=== PATIENT | female | born 1945 | race Caucasian/White ===

== ENCOUNTER 2016-10-08 06:52 | Emergency (ER) | payer OTHER ==
--- NOTE | 2016-10-08 08:51 | DIAGNOSTIC IMAGING REPORT ---
PROCEDURE: XR CHEST 1 VIEW INDICATION: SHORTNESS OF BREATH TECHNIQUE: Portable AP view (0820 hours). COMPARISON: Compared to chest x-ray on 02/24/2008. FINDINGS: Lungs are clear. Heart and mediastinum are normal. Thorax is normal. IMPRESSION: 1. Negative chest.
--- NOTE | 2016-10-08 09:10 | ED ORDER SUMMARY ---
..... Patient: LANA ESPINOZA OrderSheet Located Within [facility] VisitID: [id number] [address] [place] [address] 71y, F Registration Date/Time: 10/08/2016 ORDER SHEET Weight: 94.3 kg (stated) Allergies: Naproxen GENERAL ORDERS: Chest 1V Urgent (08:04 10/08/2016 Milad SIERRA) (Ack 8:34 LNations ER Tech1) (9:18 LNations ER Tech1) EKG - ER Stat (08:05 10/08/2016 Milad SIERRA) (Ack 8:34 LNations ER Tech1) (8:51 LNations ER Tech1) MEDICATION ORDERS: DuoNeb Neb Tx 1 unit dose (NOW) (08:21 10/08/2016 Milad SIERRA) (8:39 RMcCclarissa) Prednisone PO 60 mg (NOW) (08:21 10/08/2016 Milad SIERRA) (8:27 EBonham) IV FLUIDS: ORDER SHEET NOTES: [Electronically signed by Dona Milian (09:24 10/08/2016)] [Electronically signed by Shazia Rossi MD (20:49 10/16/2016)] [Electronically locked/signed by Dona Milian (09:24 10/08/2016)]
--- NOTE | 2016-10-08 09:10 | ED ORDER SUMMARY ---
..... Patient: LANA ESPINOZA OrderSheet [facility] VisitID: [id number] [address] [place] [address] 71y, F Registration Date/Time: 10/08/2016 ORDER SHEET Weight: 94.3 kg (stated) Allergies: Naproxen GENERAL ORDERS: Chest 1V Urgent (08:04 10/08/2016 Milad SIERRA) (Ack 8:34 LNations ER Tech1) (9:18 LNations ER Tech1) EKG - ER Stat (08:05 10/08/2016 Milad SIERRA) (Ack 8:34 LNations ER Tech1) (8:51 LNations ER Tech1) MEDICATION ORDERS: DuoNeb Neb Tx 1 unit dose (NOW) (08:21 10/08/2016 Milad SIERRA) (8:39 RMcCclarissa) Prednisone PO 60 mg (NOW) (08:21 10/08/2016 Milad SIERRA) (8:27 EBonham) IV FLUIDS: ORDER SHEET NOTES: [Electronically signed by Dona Milian (09:24 10/08/2016)] [Electronically signed by Shazia Rossi MD (20:49 10/16/2016)] [Electronically locked/signed by Dona Milian (09:24 10/08/2016)]
--- NOTE | 2016-10-08 09:10 | ED CLINICAL REPORT ---
Clinical Report - Physicians/Mid Levels [facility] [address] [place] [address] 10/08/2016 6:51 Patient: LANA ESPINOZA Time Seen: 07:59. Arrived- By private vehicle. Historian- patient. HISTORY OF PRESENT ILLNESS Chief Complaint: DYSPNEA and HISTORY OF ASTHMA and CHRONIC OBSTRUCTIVE PULMONARY DISEASE. This started about 2 days ago and is still present. The dyspnea is described as moderate and is worsened by walking and exertion, is improved by rest and is improved with oxygen. The patient has had a mild dry cough. No sputum production, fever, sweating episodes or chills. No chest pain or discomfort, calf pain, foot swelling or orthopnea. No anxiety, dizziness, tingling, numbness or palpitations. The patient has had wheezing and dyspnea on exertion. (Pt states she has been out of her albuterol MDI.). Similar symptoms previously: Many times. Recent medical care: Not recently seen/assessed. REVIEW OF SYSTEMS The patient has not had weight loss. No muscle aches, eye irritation, sore throat, nasal discharge or sinus drainage. No nausea, vomiting, abdominal pain, diarrhea or black stools. No bloody stools, headache, fainting episodes, blurred vision or difficulty with urination. No skin rash, enlarged lymph nodes or joint pain. All systems otherwise negative, except as recorded above. PAST HISTORY Problems: Obesity. Hyperkalemia. Vertigo. Head Injury. Anxiety Reaction. Depression. Hypertension. Additional Surgeries: . Hysterectomy. Medications: ALPRAZolam Oral 0.25 mg, 3x a day. Citalopram Hydrobromide Oral (Tablet 40 mg). Furosemide Oral 40 mg, 2x a day. Hydroxychloroquine Sulfate Oral (Tablet 200 mg). HydrOXYzine HCl Oral (Tablet 10 mg), 4x a day. Lisinopril Oral 40 mg, daily. TraZODone HCl Oral 50 mg, daily. Allergies: Naproxen. SOCIAL HISTORY Never smoker. No alcohol use or drug use. ADDITIONAL NOTES The nursing notes have been reviewed. PHYSICAL EXAM Vital Signs: 10/08/2016 08:53 BP: 158/69. HR: 88. RR: 18. O2 saturation: 96%. 10/08/2016 06:53 Temp: 97.4 F. Have been reviewed. Appearance: Alert. Patient in mild distress. Distress appears respiratory. Eyes: Pupils equal, round and reactive to light. Eyes normal inspection. ENT: Nose normal. Neck: Normal inspection. No jugular venous distention. Neck supple. CVS: Normal heart rate and rhythm. Heart sounds normal. Pulses normal. Respiratory: Mild respiratory distress with accessory muscle use (Speaks in full sentences.). Mildly prolonged expirations. Mildly decreased air movement bilaterally. Expiratory mild bilateral wheezes diffusely. Abdomen: Soft and nontender. Back: Normal inspection. No CVA tenderness. Skin: Skin warm and dry. Normal skin color. No rash. Normal skin turgor. Extremities: Extremities exhibit normal ROM. No lower extremity edema. Neuro: Oriented X 3. No motor deficit. No sensory deficit. LABS, X-RAYS, AND EKG EKG: EKG time: (0843). No acute process. No acute ischemia. Normal EKG. Normal sinus rhythm. Rate: 83. Normal P waves. Normal GILBERT. Normal QRS complex. Normal axis. Normal ST and T waves, QT and QTc. Prior EKG unavailable. The study has been interpreted contemporaneously by me. The study has been independently viewed by me. The EKG appears to be a good tracing. I agree with and confirm the computer reading of the EKG. Chest X-ray: No acute disease. Normal lung markings present. Normal heart size. Mediastinum normal. Great vessels normal. Soft tissues normal. No infiltrate. No fracture. No bony lesion present. Views: AP (portable). Technique: good. The X-rays were independently viewed by me, interpreted by the radiologist and contemporaneously by me and discussed with the radiologist. Prior films were not available for comparison. Pulse Oximetry: 10/08/2016 08:53 O2 saturation: 96%. (FIO2 - room air). Interpretation: normal. PROGRESS AND PROCEDURES Course of Care: PT was treated with a duoneb and prednisone, and was feeling much better after this. I did refill her albuterol inhaler. EKG and CXR were unremarkable. Patient counseled in person regarding the patient's stable condition, test results, diagnosis and need for follow-up. Concerns were addressed. Old medical records reviewed. Disposition: Discharged. Condition: stable and improved. CLINICAL IMPRESSION Acute exacerbation of COPD. Acute rhinitis. INSTRUCTIONS (Your chest x-ray shows no pneumonia. You most likely have one of the many viruses that are going around. This will pass on its own without antibiotics, but you should use the inhaler and the steroids while you are sick.). Warnings: GENERAL WARNINGS: Return or contact your physician immediately if your condition worsens or changes unexpectedly, if not improving as expected, or if other problems arise. Your Current Medications: CONTINUE TAKING THE FOLLOWING MEDICATIONS: ALPRAZolam Oral : 0.25 mg 3x a day. Citalopram Hydrobromide Oral : Tablet 40 mg. Furosemide Oral : 40 mg 2x a day. Hydroxychloroquine Sulfate Oral : Tablet 200 mg. HydrOXYzine HCl Oral : Tablet 10 mg, 4x a day. Lisinopril Oral : 40 mg daily. TraZODone HCl Oral : 50 mg daily. Prescription Medications: Albuterol HFA oral inhaler: inhale 2 puffs every 4 hours as needed for wheezing, difficulty breathing or shortness of breath. Dispense one (1) unit. No refill. Prednisone 20 mg: take 3 orally every day for 4 days. Dispense sufficient quantity. No refills. Follow-up: Follow up with your doctor in three days if not better. Understanding of the discharge instructions verbalized by patient. (Electronically signed by Shazia Rossi MD 10/16/2016 20:49)
--- NOTE | 2016-10-08 09:10 | ED NURSING NOTES ---
Clinical Report - Nurses [facility] [address] [place] [address] 10/08/2016 6:51 Patient: LANA ESPINOZA TRIAGE Triage time 06:53. Acuity: LEVEL 3. Chief Complaint: COUGH and (sob). --06:57 Kingsley Hess R.N. 06:53 10/08/16. Temp: 97.4 F. --06:57 Kingsley Hess R.N. Acuity: LEVEL 3. --08:55 Dona Milian 08:53 10/08/16. BP: 158/69. HR: 88. RR: 18. O2 saturation: 96%. Pain level now 0/10. --08:55 Dona Milian. Weight: 94.3 kg stated. Height/Length: 61 inches Per Patient. BMI: 39.3. --06:56 Kingsley Hess R.N. Medications ALPRAZolam Oral 0.25 mg, 3x a day. Citalopram Hydrobromide Oral (Tablet 40 mg). Furosemide Oral 40 mg, 2x a day. Hydroxychloroquine Sulfate Oral (Tablet 200 mg). HydrOXYzine HCl Oral (Tablet 10 mg), 4x a day. Lisinopril Oral 40 mg, daily. TraZODone HCl Oral 50 mg, daily. --06:53 Kingsley Hess R.N. Medication/allergy information source: the patient. --06:57 Kingsley Hess R.N. Allergies Naproxen. --06:53 Kingsley Hess R.N. History Arrived by EMS. Historian: patient. Unaccompanied. Onset. (2 days ago). ( Pt came in with sob x 2 days and has been out of albuterol for the past 3 days. EMS did a 12 lead and was NSR. Pt was not placed on oxygen due to being on 96% room air. Pt denies any chest pain.). 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 SOCIAL HX: Never smoker. No alcohol use or drug use. --06:57 Kingsley Hess R.N. Primary physician (Dr. Mays). --07:03 Kingsley Hess R.N. PROBLEMS: Obesity. Hyperkalemia. Concussion. Vertigo. Heart Disease. Head Injury. Dizziness. Anxiety Reaction. Depression. Hypertension. --06:54 Kingsley Hess R.N. Interventions ID band on patient. To treatment room. --06:57 Kingsley Hess R.N. ID band on patient. To treatment room. --08:55 Dona Milian. NURSING PROGRESS NOTES Pulse oximeter and NIBP monitor placed on patient. Patient gowned. --07:04 Kingsley Hess R.N. 08:27 10/08/2016 Prednisone PO 60 mg given. Allergies verified and confirmed 5 rights. --08:27 Dona Milian 08:39 10/08/2016 Duoneb (Ipratropium-Albuterol) Neb TX Nebulizer 1 unit dose given. --08:39 Lata Phillip EKG time: (842). EKG was ordered, performed by a tech and shown to the ED physician. --08:51 Kemi Sanon, MELODY Tech1. DISPOSITION / DISCHARGE Departure time: 919. Condition at departure: improved and stable. No learning barriers present. Discharge instructions provided and reviewed with the patient. Reviewed medication(s). Patient verbalized understanding. Written instructions provided in Georgian. The patient was discharged by the physician. She was discharged home. She left the Emergency Department ambulatory and via private vehicle. Family member driving. --09:24 Dona Milian 09:23 10/08/16. BP: 146/78. HR: 80. RR: 16. O2 saturation: 96%. Pain level now 0/10. --09:24 Dona Milian. Locked/Released at 10/08/2016 9:24 by Dona Milian,
--- NOTE | 2016-10-08 09:10 | ED NURSING NOTES ---
Clinical Report - Nurses [facility] [address] [place] [address] 10/08/2016 6:51 Patient: LANA ESPINOZA TRIAGE Triage time 06:53. Acuity: LEVEL 3. Chief Complaint: COUGH and (sob). --06:57 Kingsley Hess R.N. 06:53 10/08/16. Temp: 97.4 F. --06:57 Kingsley Hess R.N. Acuity: LEVEL 3. --08:55 Dona Milian 08:53 10/08/16. BP: 158/69. HR: 88. RR: 18. O2 saturation: 96%. Pain level now 0/10. --08:55 Dona Milian. Weight: 94.3 kg stated. Height/Length: 61 inches Per Patient. BMI: 39.3. --06:56 Kingsley Hess R.N. Medications ALPRAZolam Oral 0.25 mg, 3x a day. Citalopram Hydrobromide Oral (Tablet 40 mg). Furosemide Oral 40 mg, 2x a day. Hydroxychloroquine Sulfate Oral (Tablet 200 mg). HydrOXYzine HCl Oral (Tablet 10 mg), 4x a day. Lisinopril Oral 40 mg, daily. TraZODone HCl Oral 50 mg, daily. --06:53 Kingsley Hess R.N. Medication/allergy information source: the patient. --06:57 Kingsley Hess R.N. Allergies Naproxen. --06:53 Kingsley Hess R.N. History Arrived by EMS. Historian: patient. Unaccompanied. Onset. (2 days ago). ( Pt came in with sob x 2 days and has been out of albuterol for the past 3 days. EMS did a 12 lead and was NSR. Pt was not placed on oxygen due to being on 96% room air. Pt denies any chest pain.). 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 SOCIAL HX: Never smoker. No alcohol use or drug use. --06:57 Kingsley Hess R.N. Primary physician (Dr. Mays). --07:03 Kingsley Hess R.N. PROBLEMS: Obesity. Hyperkalemia. Concussion. Vertigo. Heart Disease. Head Injury. Dizziness. Anxiety Reaction. Depression. Hypertension. --06:54 Kingsley Hess R.N. Interventions ID band on patient. To treatment room. --06:57 Kingsley Hess R.N. ID band on patient. To treatment room. --08:55 Dona Milian. NURSING PROGRESS NOTES Pulse oximeter and NIBP monitor placed on patient. Patient gowned. --07:04 Kingsley Hess R.N. 08:27 10/08/2016 Prednisone PO 60 mg given. Allergies verified and confirmed 5 rights. --08:27 Dona Milian 08:39 10/08/2016 Duoneb (Ipratropium-Albuterol) Neb TX Nebulizer 1 unit dose given. --08:39 Lata Phillip EKG time: (842). EKG was ordered, performed by a tech and shown to the ED physician. --08:51 Kemi Sanon, MELODY Tech1. DISPOSITION / DISCHARGE Departure time: 919. Condition at departure: improved and stable. No learning barriers present. Discharge instructions provided and reviewed with the patient. Reviewed medication(s). Patient verbalized understanding. Written instructions provided in Upper Sorbian. The patient was discharged by the physician. She was discharged home. She left the Emergency Department ambulatory and via private vehicle. Family member driving. --09:24 Dona Milian 09:23 10/08/16. BP: 146/78. HR: 80. RR: 16. O2 saturation: 96%. Pain level now 0/10. --09:24 Dona Milian. Locked/Released at 10/08/2016 9:24 by Dona Milian,
--- NOTE | 2016-10-16 20:49 | ED MAR SUMMARY ---
..... Medication Administration Record [facility] [address] [place] [address] Patient: LANA ESPINOZA Visit ID: [id number] 71y, F Weight: 94.3 kg Height/Length: 61 in BMI: 39.3 ALLERGIES: Naproxen Given 08:27 10/08/2016 Dona Milian, Medication Administered: PREDNISONE [PO], Dose: 60 mg PO. Medication Ordered: Prednisone PO 60 mg (NOW). Given 08:39 10/08/2016 Lata Phillip, Medication Administered: DUONEB [NEB TX] (IPRATROPIUM-ALBUTEROL), Dose: 1 unit dose Nebulizer Neb TX. Medication Ordered: DuoNeb Neb Tx 1 unit dose (NOW).
--- NOTE | 2016-10-16 20:49 | ED DISCHARGE INSTRUCTIONS ---
Patient: LANA ESPINOZA General Instructions [facility] VisitID: [id number] [place] [address] 71y, F Registration Date/Time: 10/08/2016 Acute exacerbation of COPD. Acute rhinitis. INSTRUCTIONS (Your chest x-ray shows no pneumonia. You most likely have one of the many viruses that are going around. This will pass on its own without antibiotics, but you should use the inhaler and the steroids while you are sick.). Warnings: GENERAL WARNINGS: Return or contact your physician immediately if your condition worsens or changes unexpectedly, if not improving as expected, or if other problems arise. Your Current Medications: CONTINUE TAKING THE FOLLOWING MEDICATIONS: ALPRAZolam Oral : 0.25 mg 3x a day. Citalopram Hydrobromide Oral : Tablet 40 mg. Furosemide Oral : 40 mg 2x a day. Hydroxychloroquine Sulfate Oral : Tablet 200 mg. HydrOXYzine HCl Oral : Tablet 10 mg, 4x a day. Lisinopril Oral : 40 mg daily. TraZODone HCl Oral : 50 mg daily. Prescription Medications: Albuterol HFA oral inhaler: inhale 2 puffs every 4 hours as needed for wheezing, difficulty breathing or shortness of breath. Dispense one (1) unit. No refill. Prednisone 20 mg: take 3 orally every day for 4 days. Dispense sufficient quantity. No refills. Follow-up: Follow up with your doctor in three days if not better. Understanding of the discharge instructions verbalized by patient. ADDITIONAL INFORMATION COPD Flare Both emphysema and chronic bronchitis are forms of chronic obstructive pulmonary disease (COPD). It is most often caused by many years of smoking tobacco. Many things can make your lung disease suddenly get worse. These causes include the common cold, pneumonia, acute bronchitis, missing doses of your regular breathing medicines, or being around smoke, dust, or other air pollutants. A COPD flare may last 7 to 14 days. Your doctor may prescribe medicineto relax your airways and prevent wheezing. Your doctor may also prescribe antibiotics if he or she thinks you havea bacterial infection. Prednisone can helpease inflammation in a severe attack. Home care Here are things you can do at home: Drink lots of water or other fluids (at least 10 glasses a day) during an attack. This will loosen lung secretions and make it easier to breathe. If you have heart or kidney disease, check with your doctor before you drink extra amounts of fluids. Take prescribed medicine exactly at the times advised. If you have a hand-held inhaler or aerosol breathing medicine, don't use it more than once every 4 hours, unless your doctor tells you to. If you were givenan antibiotic or prednisone, take all of the medicine even if you are feeling better after a few days. Don't smoke. Avoid being aroundthe smoke of others. If you were given an inhaler, use it exactly as directed. If you need to use it more often than prescribed, your condition may be getting worse. Call your doctor. Follow-up care Follow up with your health care provider.If you are 65 or older or have chronic asthma or COPD, you should get a single dose of the pneumococcal vaccine and aflu shot each year. You may need a second dose of the pneumococcal vaccine if you had the first dose at a younger age. Your health care provider will let you know if you need a second dose. For all other people, the usual dose for the pneumococcal vaccine is 1 or 2 shots. Yourprovider can discuss this with you. When to seek medical care Get prompt medical attention ifany of these occur: Increased wheezing or shortness of breath Need to use your inhalers more often than usual without relief Fever of 100.4F(38C) or higher, or as directed by your health care provider Coughing up lots of dark-colored or bloody sputum (mucus) Chest pain with each breath You do not start to improve within 24 hours Viral Respiratory Illness [Adult] You have an Upper Respiratory Illness (URI) caused by a virus. This illness is contagious during the first few days. It is spread through the air by coughing and sneezing or by direct contact (touching the sick person and then touching your own eyes, nose or mouth). Most viral illnesses go away within 7-10 days with rest and simple home remedies. Sometimes, the illness may last for several weeks. Antibiotics will not kill a virus and are generally not prescribed for this condition. Home Care: 1) If symptoms are severe, rest at home for the first 2-3 days. When you resume activity, don't let yourself get too tired. 2) Avoid being exposed to cigarette smoke (yours or others). 3) Tylenol (acetaminophen) or ibuprofen (Advil, Motrin) will help fever, muscle aching and headache. (Persons under 18 with fever should not take aspirin since this may cause liver damage.) 4) Your appetite may be poor, so a light diet is fine. Avoid dehydration by drinking 6-8 glasses of fluids per day (water, soft drinks, juices, tea, soup). Extra fluids will help loosen secretions in the nose and lungs. 5) [id number] cold medicines will not shorten the length of time youre sick, but they may be helpful for the following symptoms: cough (Robitussin DM); sore throat (Chloraseptic lozenges or spray); nasal and sinus congestion (Actifed, Sudafed, Chlortrimeton). Follow Up with your doctor or as advised if you dont improve over the next week. Get Prompt Medical Attention if any of the following occur: -- Cough with lots of colored sputum (mucus) or blood in your sputum -- Chest pain, shortness of breath, wheezing or have trouble breathing -- Severe headache; face, neck or ear pain -- Fever over 100.4 F (38.0 C) for more than three days -- You cant swallow due to throat pain You have been given the following additional information: COPD Flare Uri, Viral, No Abx (Adult) (Electronically signed by Shazia Rossi MD 10/16/2016 20:49)
--- NOTE | 2016-10-16 20:49 | ED MAR SUMMARY ---
..... Medication Administration Record [facility] [address] [place] [address] Patient: LANA ESPINOZA Visit ID: [id number] 71y, F Weight: 94.3 kg Height/Length: 61 in BMI: 39.3 ALLERGIES: Naproxen Given 08:27 10/08/2016 Dona Milian, Medication Administered: PREDNISONE [PO], Dose: 60 mg PO. Medication Ordered: Prednisone PO 60 mg (NOW). Given 08:39 10/08/2016 Lata Phillip, Medication Administered: DUONEB [NEB TX] (IPRATROPIUM-ALBUTEROL), Dose: 1 unit dose Nebulizer Neb TX. Medication Ordered: DuoNeb Neb Tx 1 unit dose (NOW).
--- NOTE | 2016-10-16 20:49 | ED MED RECONCILIATION SUMMARY ---
Patient: LANA ESPINOZA Medication Reconciliation Report [facility] VisitID: [id number] [place] [address] 71y, F Registration Date/Time: 10/08/2016 Weight: 94.3 kg Height/Length: 61 in. BMI: 39.3 ALLERGIES: Naproxen The patient's Home Medications are listed below: CONTINUE TAKING THE FOLLOWING MEDICATIONS: ALPRAZolam Oral 0.25 mg, 3x a day Citalopram Hydrobromide Oral (40 mg) Furosemide Oral 40 mg, 2x a day Hydroxychloroquine Sulfate Oral (200 mg) HydrOXYzine HCl Oral (10 mg), 4x a day Lisinopril Oral 40 mg, daily TraZODone HCl Oral 50 mg, daily The source(s) of the original Home Medication information: patient The following Medications were given to the patient in the Emergency Department: Prednisone [PO] PO 60 mg, administered: 10/08/2016 8:27:00 AM Duoneb [Neb Tx] Neb TX 1 unit dose, administered: 10/08/2016 8:39:00 AM The following Medications were prescribed to the patient: Albuterol HFA oral inhaler: inhale 2 puffs every 4 hours as needed for wheezing, difficulty breathing or shortness of breath. Dispense one (1) unit. No refill. -- Shazia Rossi MD Prednisone 20 mg: take 3 orally every day for 4 days. Dispense sufficient quantity. No refills. -- Shazia Rossi MD
--- NOTE | 2016-10-16 20:49 | ED MED RECONCILIATION SUMMARY ---
Patient: LANA ESPINOZA Medication Reconciliation Report [facility] VisitID: [id number] [place] [address] 71y, F Registration Date/Time: 10/08/2016 Weight: 94.3 kg Height/Length: 61 in. BMI: 39.3 ALLERGIES: Naproxen The patient's Home Medications are listed below: CONTINUE TAKING THE FOLLOWING MEDICATIONS: ALPRAZolam Oral 0.25 mg, 3x a day Citalopram Hydrobromide Oral (40 mg) Furosemide Oral 40 mg, 2x a day Hydroxychloroquine Sulfate Oral (200 mg) HydrOXYzine HCl Oral (10 mg), 4x a day Lisinopril Oral 40 mg, daily TraZODone HCl Oral 50 mg, daily The source(s) of the original Home Medication information: patient The following Medications were given to the patient in the Emergency Department: Prednisone [PO] PO 60 mg, administered: 10/08/2016 8:27:00 AM Duoneb [Neb Tx] Neb TX 1 unit dose, administered: 10/08/2016 8:39:00 AM The following Medications were prescribed to the patient: Albuterol HFA oral inhaler: inhale 2 puffs every 4 hours as needed for wheezing, difficulty breathing or shortness of breath. Dispense one (1) unit. No refill. -- Shazia Rossi MD Prednisone 20 mg: take 3 orally every day for 4 days. Dispense sufficient quantity. No refills. -- Shazia Rossi MD
== END 2016-10-08 09:20 | disposition home or self-care (01) ==
LOC: ED SRH 06:52
DX: J44.1 Chronic obstructive pulmonary disease with (acute) exacerbation (principal); J00 Acute nasopharyngitis [common cold]; I10 Essential (primary) hypertension; Z88.8 Allergy status to other drugs, medicaments and biological substances; Z79.899 Other long term (current) drug therapy

== ENCOUNTER 2017-03-07 10:18 | Outpatient (CLI) | payer OTHER ==
--- NOTE | 2017-03-07 13:16 | DIAGNOSTIC IMAGING REPORT ---
PROCEDURE: XR BARIUM SWALLOW INDICATION: DIFFICULTY SWALLOWING sensation of food sticking TECHNIQUE: Real time fluoroscopy was performed on the esophagus. Total fluoro time 2.8 minutes. Cumulative dose 1442.66 mGy. 183 saved fluoroscopic images including cine imaging and last image hold screen capture images. COMPARISON: None. FINDINGS: The swallowing mechanism is normal without aspiration. There is laryngeal penetration. The esophagus is normal in course, contour, and caliber. There is a small hiatal hernia in the upright and recumbent position. Initially upon swallowing bolus, there is some spasm of the gastroesophageal junction but no with eventual normal relaxation of the lower esophageal sphincter. Esophageal motility in the upright position also demonstrates mild to moderate intermittent tertiary contractions. In the recumbent position, there was lack of secondary stripping wave and occasional smooth discoordinated contractions resulting in mild intraesophageal reflux. There was mild to moderate spontaneous gastroesophageal reflux in the recumbent position (to the mid esophagus). IMPRESSION: 1. Occasional lower esophageal sphincter spasm with eventual normal relaxation and normal caliber at the GE junction. 2. Mild discoordination of secondary stripping wave and tertiary contractions resulting in mild intraesophageal reflux. 3. Small hiatal hernia. 4. Mild to moderate spontaneous gastroesophageal reflux.
== END 2017-03-07 23:00 ==
LOC: XR SRH 10:18
DX: K21.9 Gastro-esophageal reflux disease without esophagitis (principal); K44.9 Diaphragmatic hernia without obstruction or gangrene